=== PATIENT | female | born 1970 | race Caucasian/White ===

== ENCOUNTER 2019-09-17 19:51 | Emergency (ER) | payer OTHER ==
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
[2019-09-18] MEDS ORDERED: CYCLOBENZAPRINE HCL 10 MG TABLET PO ONE ×2 (00:39→00:58)
[2019-09-18] MEDS ORDERED: OXYCODONE-ACETAMINOPHEN 5-325 MG TABLET PO ONE (00:39)
[2019-09-18] MEDS ORDERED: HYDROCODONE/ACETAMINOPHEN 5-325 MG (6 TAB/ER DISP) PO PRN (00:40)
[2019-09-18] MEDS ORDERED: IBUPROFEN 800 MG TABLET PO ONE (00:53)
[2019-09-18] MEDS ORDERED: ACETAMINOPHEN 325 MG TABLET PO ONE (00:53)
[2019-09-18 01:26] VITALS: BP 156/85
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
== END 2019-09-18 01:25 | disposition home or self-care (01) ==
LOC: ER 19:51
DX: R91.1 Solitary pulmonary nodule (principal); S16.1XXA Strain of muscle, fascia and tendon at neck level, initial encounter; R51 Headache; M25.512 Pain in left shoulder; M25.511 Pain in right shoulder; V89.2XXA Person injured in unspecified motor-vehicle accident, traffic, initial encounter; F17.210 Nicotine dependence, cigarettes, uncomplicated
CPT/HCPCS: 72125; 99283